=== PATIENT | male | born 1990 | race Caucasian/White ===

== ENCOUNTER 2017-12-20 20:12 | Emergency (ER) | payer OTHER ==
[2017-12-20 20:17] VITALS: BP 117/63; PULSE 72; RESP 16; TEMP 98.6
[2017-12-20] MEDS ORDERED: KETOROLAC 30 MG/ML 1 ML VIAL IM STA (20:49)
--- NOTE | 2017-12-20 20:55 | ED ---
Extremity Problem HPI - General Chief complaint: Extremity Problem,Nontraumatic Stated complaint: arm pain Time Seen by Provider: 12/20/17 20:42 Source: patient, RN notes reviewed Mode of arrival: ambulatory Limitations: no limitations - History of Present Illness Initial comments: This a 27-year-old male with no past medical history presents today for chief complaint of right forearm pain. 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 About 5 days ago he noticed a lump in the posterior aspect along the lateral side of the right forearm, and small raised area that feels like muscle. He thought that maybe he had overused his right arm. The pain persisted for the past 5 days, today when he noticed a creaking feeling and sound when flexing and extending the right wrist he decided presents emergency department for further evaluation. Patient admits to pain that increases with flexion and extension of the right wrist. Pt did state that he had a previous right forearm fracture about 10 years ago. Patient denies numbness, tingling, loss sensation, muscle weakness, inability to range at the wrist or elbow, pain out of proportion, pallor or coolness of the extremities. Patient denies any erythema, fluctuance , warmth to the area, for fever, chills or night sweats. Upon arrival to ED pt VS stable, remainder of ROS negative - Related Data Home Medications Medication Instructions Recorded Confirmed No Known Home Medications 12/20/17 12/20/17 Allergies Allergy/AdvReac Type Severity Reaction Status Date / Time Penicillins Allergy Swelling Verified 12/20/17 20:17 Review of Systems ROS Statement: Those systems with pertinent positive or pertinent negative responses have been documented in the HPI. ROS Other: All systems not noted in ROS Statement are negative. Constitutional: Denies: fever, chills, night sweats Respiratory: Denies: cough, dyspnea Cardiovascular: Denies: chest pain, palpitations Gastrointestinal: Denies: abdominal pain, nausea, vomiting, diarrhea, constipation Genitourinary: Denies: urgency, dysuria Musculoskeletal: Reports: myalgia. Denies: back pain, joint swelling, arthralgia Skin: Denies: rash, lesions Neurological: Denies: headache, weakness, numbness, paresthesias, confusion Past Medical History Past Medical History: No Reported History History of Any Multi-Drug Resistant Organisms: None Reported Past Surgical History: No Surgical Hx Reported Past Psychological History: No Psychological Hx Reported Smoking Status: Former smoker Past Alcohol Use History: None Reported Past Drug Use History: None Reported General Exam - General Exam Comments Initial Comments: General: The patient is awake and alert, in no distress, and does not appear acutely ill. Eye: Pupils are equal, round and reactive to light, extra-ocular movements are intact. No nystagmus. There is normal conjunctiva bilaterally. No signs of icterus. Ears, nose, mouth and throat: There are moist mucous membranes and no oral lesions. Cardiovascular: There is a regular rate and rhythm. No murmur, rub or gallop is appreciated. Respiratory: Lungs are clear to auscultation, respirations are non-labored, breath sounds are equal. No wheezes, stridor, rales, or rhonchi. Musculoskeletal: Raised mass on the posterior aspect of the distal right forearm, more lateral in position. Mild tenderness to palpation. Mass dense and compressible, not fluctuant. No erythema or warmth to palpation. Full ROM at the wrist with flexion, extension, supination, and pronation. (+) kylie. Strength 5/5 at the wrists b/l. Sensation intact of the UE and hands b/l. Radial pulses equal bilaterally 2+. Capillary refill <2seconds. Neurological: A&O x 3. CN II-XII intact, There are no obvious motor or sensory deficits. Coordination appears grossly intact. Speech is normal. Skin: Skin is warm and dry and no rashes or lesions are noted. Psychiatric: Cooperative, appropriate mood & affect, normal judgmen Limitations: no limitations Course Vital Signs 12/20/17 20:14 Temperature 98.6 F Pulse Rate 72 Respiratory 16 Rate Blood Pressure 117/63 O2 Sat by Pulse 97 Oximetry Medical Decision Making - Medical Decision Making 27-year-old male with right forearm pain concerning for tendinitis. Upon physical examination there was palpable crepitus with flexion extension at the wrist. X-rays obtained revealing no acute fracture. Patient neurovascularly intact. Compartments soft and compressible. Patient had positive Kylie' s. Given history of repetitive movement including hammering at work and increased use of right arm, along with PE findings I believe that patient's pain is due to a tendinitis most likely of the extensor tendons of the forearm. Case is discussed in detail with Dr. David who agrees the impression. Patient's instructed to apply ice and take anti-inflammatory medications for pain management. As well as rest the wrist for many repetitive movements the next 3-4 days. Pt agreed with plan and was discharged in stable condition. She was instructed to follow-up with primary care provider one to 2 days. Patient agreed, patient denied any questions at this time. Disposition Clinical Impression: Tendinitis of forearm Disposition: HOME SELF-CARE Condition: Good Instructions: Tendinitis (ED) Additional Instructions: Please use over the counter pain medication as discussed. Please follow-up with family doctor in the next 2 days. Please return to emergency room if the symptoms increase or worsen or for any other concerns. Is patient prescribed a controlled substance at d/c from ED?: No Referrals: None,Stated [Primary Care Provider] - 1-2 days Time of Disposition: 21:58
--- NOTE | 2017-12-20 21:47 | XR ---
EXAMINATION TYPE: XR forearm RT DATE OF EXAM: 12/20/2017 COMPARISON: NONE HISTORY: Arm pain TECHNIQUE: 2 views FINDINGS: Radius and ulna appear intact. There is accessory ossicles at the tip of the ulnar styloid process. Elbow joint appears intact. IMPRESSION: No acute abnormality of the right forearm.
== END 2017-12-20 22:05 | disposition home or self-care (01) ==
LOC: EC 20:12
DX: M77.9 Enthesopathy, unspecified (principal); Z87.891 Personal history of nicotine dependence; Z87.828 Personal history of other (healed) physical injury and trauma; Z88.0 Allergy status to penicillin
CPT/HCPCS: 73090; 99283; 96372; J1885

== ENCOUNTER 2021-11-09 14:15 | Emergency (ER) | payer BC ==
[2021-11-09 14:22] VITALS: BP 137/81; PULSE 75; RESP 20; TEMP 98.1
--- NOTE | 2021-11-09 15:00 | XR ---
EXAMINATION TYPE: XR shoulder complete RT DATE OF EXAM: 11/09/2021 COMPARISON: NONE HISTORY: Shoulder pain and neck pain TECHNIQUE: 3 views FINDINGS: There is no fracture nor dislocation. Glenohumeral joint is intact. There are no pathologic calcifications. IMPRESSION: Negative right shoulder exam. No fracture.
--- NOTE | 2021-11-09 15:01 | XR ---
EXAMINATION TYPE: XR cervical spine comp DATE OF EXAM: 11/09/2021 COMPARISON: NONE HISTORY: Neck pain TECHNIQUE: 5 views FINDINGS: There is some straightening of the vertebra. Posterior elements are intact. This spaces are normal. Prevertebral soft tissues are intact. The neural foramina are well maintained. Atlantoaxial facet joint is normal. There are no cervical ribs. IMPRESSION: There is straightening of the spine with a slight kyphotic curvature that could relate to spasm. No fracture seen.
[2021-11-09] MEDS ORDERED: IBUPROFEN 800 MG TAB PO STA (15:30)
[2021-11-09] MEDS ORDERED: diazePAM 2 MG TAB PO STA (15:30)
--- NOTE | 2021-11-09 15:32 | ED ---
General Adult HPI - General Chief complaint: Neck Pain/Injury Stated complaint: Neck pain/Injury 2 weeks ago Time Seen by Provider: 11/09/21 15:14 Source: patient Mode of arrival: ambulatory Limitations: no limitations - History of Present Illness Initial comments: Dictation was produced using [employer] dictation software. please excuse any grammatical, word or spelling errors. Chief Complaint: 30-year-old male presents emergency department for neck stiffness History of Present Illness: 3-year-old male presents to the emergency Department with neck stiffness. Patient states that his symptoms have been ongoing for 2 weeks. Denies any fever or constitutional symptoms. Denies any headache. Denies any numbness and paresthesias to the extremities. Patient states that spent ongoing for the last 2 weeks however worse today. He woke up with pain. Patient believes that his symptoms began in his right shoulder. The ROS documented in this emergency department record has been reviewed and confirmed by me. Those systems with pertinent positive or negative responses have been documented in the HPI. All other systems are other negative and/or noncontributory. PHYSICAL EXAM: General Impression: Alert and oriented x3, not in acute distress HEENT: Normocephalic atraumatic, extra-ocular movements intact, pupils equal and reactive to light bilaterally, mucous membranes moist. Cardiovascular: Heart regular rate and rhythm Chest: Able to complete full sentences, no retractions, no tachypnea Abdomen: abdomen soft, non-tender, non-distended, no organomegaly Musculoskeletal: Pulses present and equal in all extremities, no peripheral edema Motor: no focal deficits noted Neurological: CN II-XII grossly intact, no focal motor or sensory deficits noted, negative Lhermitte's, negative Brudzinski's and negative Kernig's sign Skin: Intact with no visualized rashes Psych: Normal affect and mood ED course: 30 y Old male presents emergency department for cervical muscle spasm. Vital signs as upon arrival are within acceptable limits. Physical examination is benign. Patient has any trauma. X-ray was ordered by triage nurse. Shoulder x-ray and cervical spine x-ray shows no acute injuries. There does appear to be however straightening of the cervical spine suggesting spasm.She given oral analgesics and oral muscle relaxants. He is reevaluated bedside at 6:00 PM found to be in stable medical condition. Patient states that his symptoms are slightly improved however he like to be discharged to continue to rest at home. Patient given medications and referral to the product specialist. - Related Data Previous Rx's Medication Instructions Recorded diazePAM [Valium] 5 mg PO Q8HR PRN 3 Days #9 tab 11/09/21 methocarbamoL [Robaxin] 1,000 mg PO QID PRN #24 tab 11/09/21 Allergies Allergy/AdvReac Type Severity Reaction Status Date / Time Penicillins Allergy Swelling Verified 11/09/21 14:22 Review of Systems ROS Statement: Those systems with pertinent positive or pertinent negative responses have been documented in the HPI. ROS Other: All systems not noted in ROS Statement are negative. Past Medical History Past Medical History: No Reported History History of Any Multi-Drug Resistant Organisms: None Reported Past Surgical History: No Surgical Hx Reported Past Psychological History: No Psychological Hx Reported Smoking Status: Former smoker Past Alcohol Use History: None Reported, Occasional Past Drug Use History: None Reported General Exam Limitations: no limitations Course Vital Signs 11/09/21 14:17 Temperature 98.1 F Pulse Rate 75 Respiratory 20 Rate Blood Pressure 137/81 O2 Sat by Pulse 95 Oximetry Disposition Clinical Impression: Cervical strain Disposition: HOME SELF-CARE Condition: Fair Instructions (If sedation given, give patient instructions): Cervical Strain (ED) Prescriptions: methocarbamoL [Robaxin] 1,000 mg PO QID PRN #24 tab PRN Reason: Muscle Spasm diazePAM [Valium] 5 mg PO Q8HR PRN 3 Days #9 tab PRN Reason: severe neck spasm Is patient prescribed a controlled substance at d/c from ED?: Yes If prescribed controlled substance>3 days was MAPS reviewed?: Prescribed <3 Days Referrals: Radha Moise DO [Doctor of Osteopathic Medicine] - 1-2 days Time of Disposition: 18:01
[2021-11-09] MEDS ORDERED: LIDOCAINE 5% PATCH TOPICAL STA (16:44)
== END 2021-11-09 18:21 | disposition home or self-care (01) ==
LOC: EC 14:15
DX: S16.1XXA Strain of muscle, fascia and tendon at neck level, initial encounter (principal); Z87.891 Personal history of nicotine dependence; Z88.0 Allergy status to penicillin; X58.XXXA Exposure to other specified factors, initial encounter
CPT/HCPCS: 72050; 99283

== ENCOUNTER 2023-07-30 21:34 | Emergency (ER) | payer BC ==
[2023-07-30 21:41] VITALS: RESP 18
[2023-07-30] MEDS: DEXAMETHASONE SOD PHOSPHATE 10 MG/ML 1 ML VIAL IM STA (22:22)
[2023-07-30] MEDS: KETOROLAC 15 MG/ML 1 ML VIAL IM STA (22:22)
--- NOTE | 2023-07-30 22:45 | ED ---
ENT HPI - General Chief complaint: ENT Stated complaint: Throat Swollen Time Seen by Provider: 07/30/23 21:39 Source: patient Mode of arrival: ambulatory Limitations: no limitations - History of Present Illness Initial comments: 32-year-old male presenting with chief complaint of sore throat. He has had a sore throat since Wednesday. States that he now feels some swelling around his neck. Admits to chills, unsure if he has had a fever. No cough or congestion. No chest pain or difficulty breathing. No abdominal pain nausea or vomiting. - Related Data Previous Rx's Medication Instructions Recorded diazePAM [Valium] 5 mg PO Q8HR PRN 3 Days #9 tab 11/09/21 methocarbamoL [Robaxin] 1,000 mg PO QID PRN #24 tab 11/09/21 Azithromycin [Zithromax] 500 mg PO DAILY 5 Days #5 tab 07/30/23 Allergies Allergy/AdvReac Type Severity Reaction Status Date / Time Penicillins Allergy Swelling Verified 07/30/23 21:38 Review of Systems ROS Statement: Those systems with pertinent positive or pertinent negative responses have been documented in the HPI. ROS Other: All systems not noted in ROS Statement are negative. Past Medical History Past Medical History: No Reported History History of Any Multi-Drug Resistant Organisms: None Reported Past Surgical History: No Surgical Hx Reported Past Psychological History: No Psychological Hx Reported Smoking Status: Former smoker Past Alcohol Use History: Occasional Past Drug Use History: None Reported General Exam Limitations: no limitations General appearance: alert, in no apparent distress Head exam: Present: atraumatic, normocephalic Eye exam: Present: normal appearance, EOMI ENT exam: Present: mucous membranes moist, TM's normal bilaterally Expanded Teeth exam: Present: normal inspection Throat exam: tonsillar erythema, tonsillomegaly. negative: tonsillar exudate, R peritonsillar mass, L peritonsillar mass Neck exam: Present: normal inspection, lymphadenopathy. Absent: meningismus Respiratory exam: Present: normal lung sounds bilaterally. Absent: respiratory distress, wheezes, rales, rhonchi, stridor Cardiovascular Exam: Present: regular rate, normal rhythm, normal heart sounds. Absent: systolic murmur, diastolic murmur, rubs, gallop, clicks Neurological exam: Present: alert, oriented X3 Psychiatric exam: Present: normal affect, normal mood Skin exam: Present: warm, dry Course Vital Signs 07/30/23 07/30/23 21:37 22:49 Temperature 98.6 F 98.7 F Pulse Rate 84 78 Respiratory 18 18 Rate Blood Pressure 131/84 134/86 O2 Sat by Pulse 98 99 Oximetry Medical Decision Making - Medical Decision Making Was pt. sent in by a medical professional or institution (, [facility], [employer], urgent care, hospital, or senior care...) When possible be specific @ -No Did you speak to anyone other than the patient for history (EMS, parent, family, police, friend...)? What history was obtained from this source @ -No Did you review nursing and triage notes (agree or disagree)? Why? @ -I reviewed and agree with nursing and triage notes Were old charts reviewed (outside hosp., previous admission, EMS record, old EKG, old radiological studies, urgent care reports/EKG's, senior care records)? Report findings @ -No old charts were reviewed Differential Diagnosis (chest pain, altered mental status, abdominal pain women, abdominal pain men, vaginal bleeding, weakness, fever, dyspnea, syncope, headache, dizziness, GI bleed, back pain, seizure, CVA, palpatations, mental health, musculoskeletal)? @ -Differential includes influenza, RSV, COVID, group A strep, tonsillar abscess, epiglottitis, this is not an all-inclusive list EKG interpreted by me (3pts min.). @ -As above X-rays interpreted by me (1pt min.). @ -None done CT interpreted by me (1pt min.). @ -None done U/S interpreted by me (1pt. min.). @ -None done What testing was considered but not performed or refused? (CT, X-rays, U/S, labs)? Why? @ -None What meds were considered but not given or refused? Why? @ -None Did you discuss the management of the patient with other professionals (professionals i.e. [facility], [employer], lab, RT, psych nurse, healthcare social worker, dry wall finisher, teacher, protocol officer, block and case maker)? Give summary @ -No Was smoking cessation discussed for >3mins.? @ -No Was critical care preformed (if so, how long)? @ -No Were there social determinants of health that impacted care today? How? (Homelessness, low income, unemployed, alcoholism, drug addiction, transportation, low edu. Level, literacy, decrease access to med. care, senior care, rehab)? @ -No Was there de-escalation of care discussed even if they declined (Discuss DNR or withdrawal of care, Hospice)? DNR status @ -No What co-morbidities impacted this encounter? (DM, HTN, Smoking, COPD, CAD, Cancer, CVA, ARF, Chemo, Hep., AIDS, mental health diagnosis, sleep apnea, morbid obesity)? @ -None Was patient admitted / discharged? Hospital course, mention meds given and route, prescriptions, significant lab abnormalities, going to OR and other pertinent info. @ -32-year-old male presenting with chief complaint of sore throat since Wednesday. History and physical exam are conducted. Tonsillar erythema and tonsillomegaly are present. No midline shift or evidence of peritonsillar abscess. No muffled voice or drooling. He complains of some "swelling" of the neck, on exam this is noted to be lymphadenopathy. He is positive for group A strep. Negative for influenza, RSV, and COVID. He will be treated with azithromycin given penicillin allergy. Educated on today's findings and treatment plan. Discharged home. Follow-up with PCP. Report back to ER with any new or worsening symptoms. Discussed return parameters and answered all questions. Patient conveyed verbal understanding and agreed to the plan. I discussed this case in detail with my attending Dr. Newman Undiagnosed new problem with uncertain prognosis? @ -No Drug Therapy requiring intensive monitoring for toxicity (Heparin, Nitro, Insulin, Cardizem)? @ -No Were any procedures done? @ -No Diagnosis/symptom? @ -Strep pharyngitis Acute, or Chronic, or Acute on Chronic? @ -Acute Uncomplicated (without systemic symptoms) or Complicated (systemic symptoms)? @ -Uncomplicated Side effects of treatment? @ -No Exacerbation, Progression, or Severe Exacerbation? @ -No Poses a threat to life or bodily function? How? (Chest pain, USA, DC, pneumonia, PE, COPD, DKA, ARF, appy, cholecystitis, CVA, Diverticulitis, Homicidal, Suicidal, threat to staff... and all critical care pts) @ -unlikely - Lab Data Lab Results 07/30/23 07/30/23 Range/Units 21:49 21:49 Influenza Type A (PCR) Not Detected (Not Detectd) Influenza Type B (PCR) Not Detected (Not Detectd) RSV (PCR) Not Detected (Not Detectd) SARS-CoV-2 (PCR) Not Detected (Not Detectd) Group A Strep (PCR) DETECTED A (Not Detectd) Disposition Clinical Impression: Strep pharyngitis Disposition: HOME SELF-CARE Condition: Good Instructions (If sedation given, give patient instructions): Strep Throat (ED) Additional Instructions: Follow-up with PCP. Report back to ER with any new or worsening symptoms. Prescriptions: Azithromycin [Zithromax] 500 mg PO DAILY 5 Days #5 tab Is patient prescribed a controlled substance at d/c from ED?: No Referrals: Quique Queen MD [Primary Care Provider] - 1-2 days Time of Disposition: 22:41
[2023-07-30 23:02] VITALS: BP 134/86; PULSE 78; TEMP 98.7
== END 2023-07-30 22:52 | disposition home or self-care (01) ==
LOC: EC 21:34
DX: J02.0 Streptococcal pharyngitis (principal); B95.0 Streptococcus, group A, as the cause of diseases classified elsewhere; Z88.0 Allergy status to penicillin; Z87.891 Personal history of nicotine dependence
CPT/HCPCS: 87651; 87636; 99283; 96372; J1885